=== PATIENT | female | born 1980 | race Hispanic/Latino ===

== ENCOUNTER → 2024-02-05 | Outpatient (CLI) | payer OTHER ==
--- NOTE | 2024-02-05 15:51 | HMCIMG ---
US PELVIC NON-OB COMP REASON: PELVIC AND PERINEAL PAIN COMPARISON: None TECHNIQUE: Transvaginal pelvic sonogram was performed. FINDINGS: Uterus is 7.2 x 4.3 x 5.6 cm. Endometrium is 1 cm. There are no endometrial or myometrial masses. Both ovaries appear normal. There are no adnexal cysts or masses. There is no free fluid in the cul-de-sac. IMPRESSION: 1. Normal pelvic sonogram.
== END | disposition home or self-care (01) ==
LOC: RAH 15:26
PROVIDERS: ATTEND Internal Medicine
DX: R10.2 Pelvic and perineal pain (principal)
CPT/HCPCS: 76856